=== PATIENT | female | born 1995 | race Caucasian/White ===

== ENCOUNTER 2019-04-18 17:56 | Emergency (ER) | payer OTHER ==
[~2019-04-18] VITALS: Ht 167.6 cm; Wt 77.3 kg
[2019-04-18 18:06] VITALS: Ht 167.6 cm; Wt 77.3 kg
[2019-04-18] MEDS ORDERED: LEVETIRACETAM 1000 MG (PMX) 100 ML IVPB STA (18:23)
[2019-04-18] MEDS ORDERED: OXCARBAZEPINE 300 MG TAB PO ONE (19:00)
[2019-04-18] MEDS ORDERED: KETOROLAC 30 MG INJ IV STA (19:47)
--- NOTE | 2019-04-18 21:33 | ERD ---
ER Documentation Chief Complaint Chief Complaint BIBA c/o Seizure no abraisions/lac/bruising noted, right shoulder pain HPI This is a 23-year-old female that states she has a known history of seizure disorders on Trileptal 300 mg twice daily. She states her seizures began after she was diagnosed with pots disease. The patient indicated that several months ago she moved from [place]. She currently resides in an apartment that she has to walk up 20 steps. She indicates that just prior to arrival the patient had an unwitnessed seizure. She stated she had been standing washing her hands when she fell onto a tiled floor. She denies a headache or neck pain. She complains of right shoulder pain. She indicated when she woke up she phoned 911. She believes this was only for several seconds. She did not lose urinary incontinence or bite her tongue. She states she spoke with her neurologist and they had discussed increasing her dose of Trileptal to 600 mg on a nightly basis. Patient denies any recent fever shaking or chills. She denies any neck pain. ROS All systems reviewed and are negative except as per history of present illness. Allergies Allergies: Coded Allergies: amoxicillin (Verified Allergy, Mild, 04/18/19) propranolol (Verified Allergy, Mild, 04/18/19) PMhx/Soc History of Surgery: Yes (lt knee sx x2, appendectomy) Anesthesia Reaction: No Hx Neurological Disorder: Yes (seizure disorder) Hx Respiratory Disorders: No Hx Cardiac Disorders: No Hx Psychiatric Problems: No Hx Miscellaneous Medical Probl: Yes (POTS syndrome) Hx Alcohol Use: No Hx Substance Use: No Hx Tobacco Use: No Smoking Status: Never smoker Physical Exam Vitals Vital Signs Date Temp Pulse Resp B/P (MAP) Pulse Ox O2 O2 Flow FiO2 Time Delivery Rate 04/18/19 98.1 91 22 129/79 98 18:06 (96) Physical Exam Constitutional:Well-developed. Well-nourished. HEENT:Normocephalic. Atraumatic.Pupils were equal round reactive to light. Moist mucous membranes.No tonsillar exudates. No nasal septal hematoma. No hemotympanum. Neck: No nuchal rigidity. No lymphadenopathy. No posterior cervical spine tenderness or step-offs. Respiratory: Not using accessory muscles of respiration.Lungs were clear to auscultation bilaterally. No rhonchi. No rales. No wheezing. Cardiovascular: Regular rate regular rhythm.No murmurs. No rubs were appreciated.S1, S2 normal. Distal pulses are palpable 2+ bilaterally. GI: Abdomen was soft. Nontender. Non Distended. No pulsatile abdominal masses or bruits. No rebound. No guarding. Bowel sounds were present and normal. Muscle skeletal: Full range of motion of both the upper and lower extremities bilaterally.Normal muscle tone.No assymetrical calf tenderness or swelling. Tenderness of the right humeral head however there was no abnormal lie to the right humeral head. Patient was able to abduct the right upper extremity past 90 degrees but this created a mild amount of pain. No swelling of the right upp er extremity. Handgrip equal and symmetrical bilaterally. Skin: No petechia, no purpura. No lesions on the palms or the soles of the feet. No maculopapular rash. NEURO: Patient was alert, awake, orientated x3.No facial droop. Gait observed and normal with no ataxia.Speech had regular rate and rhythm. No focal neurological deficits. Result Diagram: 04/18/19182504/18/191825 Results 24 hrs Laboratory Tests Test 04/18/19 18:26 04/18/19 19:58 White Blood Count 7.0 10^3/ul Red Blood Count 5.06 10^6/ul Hemoglobin 13.2 g/dl Hematocrit 41.2 % Mean Corpuscular Volume 81.4 fl Mean Corpuscular Hemoglobin 26.1 pg Mean Corpuscular Hemoglobin Concent 32.0 g/dl Red Cell Distribution Width 13.9 % Platelet Count 268 10^3/UL Mean Platelet Volume 10.9 fl Immature Granulocytes % 0.300 % Neutrophils % 68.7 % Lymphocytes % 22.8 % Monocytes % 7.2 % Eosinophils % 0.6 % Basophils % 0.4 % Nucleated Red Blood Cells % 0.0 /100WBC Immature Granulocytes # 0.020 10^3/ul Neutrophils # 4.8 10^3/ul Lymphocytes # 1.6 10^3/ul Monocytes # 0.5 10^3/ul Eosinophils # 0.0 10^3/ul Basophils # 0.0 10^3/ul Nucleated Red Blood Cells # 0.0 10^3/ul Prothrombin Time 12.0 Sec Prothrombin Time Ratio 0.9 INR International Normalized Ratio 0.88 Activated Partial Thromboplast Time 28.8 Sec Sodium Level 140 mmol/L Potassium Level 3.7 mmol/L Chloride Level 107 mmol/L Carbon Dioxide Level 25 mmol/L Anion Gap 8 Blood Urea Nitrogen 12 mg/dl Creatinine 0.63 mg/dl Est Glomerular Filtrat Rate mL/min > 60 mL/min Glucose Level 130 mg/dl Calcium Level 9.3 mg/dl Total Bilirubin 0.5 mg/dl Direct Bilirubin 0.00 mg/dl Indirect Bilirubin 0.5 mg/dl Aspartate Amino Transf (AST/SGOT) 25 IU/L Alanine Aminotransferase (ALT/SGPT) 11 IU/L Alkaline Phosphatase 73 IU/L Total Protein 7.9 g/dl Albumin 4.5 g/dl Globulin 3.40 g/dl Albumin/Globulin Ratio 1.32 POC Beta HCG, Qualitative NEGATIVE Current Medications Medications Dose Sig/Mohsen Start Time Status Last (Trade) Ordered Route PRN Stop Time Admin Dose Reason Admin 100 ml @ ONCE STAT 04/18/19 DC 04/18/19 Levetiracetam 400 mls/hr IVPB 18:23 04/18/19 18:44 18:37 300 mg ONCE ONCE 04/18/19 DC 04/18/19 Oxcarbazepine PO 19:00 04/18/19 19:03 19:01 (Trileptal) Ketorolac 30 mg ONCE STAT 04/18/19 DC 04/18/19 Tromethamine IV 19:47 04/18/19 20:01 (Toradol) 19:51 Procedures/MDM This is a 23-year-old female that states she has a complicated past medical history. She states she is a fall risk. She states that she has frequent seizures. The patient had no signs of head trauma. Radiographic imaging was obtained of the patient's shoulder. There is no underlying fracture or dislocation. IV access was established and Keppra was initially to be given. However the patient states she has adverse reactions to Keppra. She was given a dose of her Trileptal p.o. She was requesting analgesic medication. She was given IV Toradol as her pain appeared to be from a muscle skeletal injury. She had good range of motion the bilateral upper extremities. The patient stated that she wanted to be admitted to the hospital and placed in a SNF facility she stated she could not walk up the steps to her home. I indicated to the patient that we could provide a social work consult. She states she already has a manager social. The patient is a fall risk and does not have anybody who is able to help her attend her activities of daily living. The patient indicated that her boyfriend would be able to stay with her for only 24 hours. She will contact her manager social to help to arrange for possible SNF facility as the patient does appear to be gravely disabled. Departure Diagnosis: Primary Impression: Seizure disorder Additional Impression: Right shoulder strain Encounter type: initial encounter Qualified Codes: S46.911A - Strain of unspecified muscle, fascia and tendon at shoulder and upper arm level, right arm, initial encounter Condition: Fair Patient Instructions: Shoulder Sprain , Seizure, Recurrent [Adult] Additional Instructions: Patient requires outpatient follow up with a manager social for home health care arrangements MYCHAL BLAND MD Apr 18, 2019 21:33
[2019-04-18] MEDS ORDERED: IVAB5TAB PO (22:41)
[2019-04-18 23:08] VITALS: BP 119/77; PULSE 87; RESP 18
== END 2019-04-18 23:21 | disposition home or self-care (01) ==
LOC: E/R 17:56
DX: G40.909 Epilepsy, unspecified, not intractable, without status epilepticus (principal); S46.911A Strain of unspecified muscle, fascia and tendon at shoulder and upper arm level, right arm, initial encounter; R40.2142 Coma scale, eyes open, spontaneous, at arrival to emergency department; R40.2362 Coma scale, best motor response, obeys commands, at arrival to emergency department; R40.2252 Coma scale, best verbal response, oriented, at arrival to emergency department; W18.39XA Other fall on same level, initial encounter; Y92.9 Unspecified place or not applicable
CPT/HCPCS: 73030; 80053; 81025; 85025; 85610; 85730; 93005; 96374; 96375; J1885; J1953; Z7502; Z7610

== ENCOUNTER 2019-05-06 00:37 | Emergency (ER) | payer OTHER ==
[~2019-05-06] VITALS: Ht 167.6 cm; Wt 77.3 kg
[~2019-05-06 00:37] MED LIST: IVAB5TAB PO
[2019-05-06 00:38] VITALS: Ht 167.6 cm; Wt 77.3 kg
[2019-05-06] MEDS ORDERED: SOD CHLORIDE 0.9% 1,000 ML IV STA (01:00)
[2019-05-06] MEDS ORDERED: LORAZEPAM 2 MG INJ IV STA (01:00)
[2019-05-06] MEDS ORDERED: ONDANSETRON 4 MG INJ IV STA (01:29)
[2019-05-06] MEDS ORDERED: KETOROLAC 30 MG INJ IV STA (02:25)
[2019-05-06] MEDS ORDERED: OXCA300T41 PO (03:28)
[2019-05-06] MEDS ORDERED: ESCI10TA48 PO (03:28)
[2019-05-06] MEDS ORDERED: NORG1TAB65 PO (03:28)
[2019-05-06] MEDS ORDERED: CHOL10009 PO (03:28)
[2019-05-06] MEDS ORDERED: OXCA600T30 PO (03:28)
--- NOTE | 2019-05-06 03:54 | ERD ---
ER Documentation Chief Complaint Chief Complaint SEIZURE X1HR AGO; STATES FELL DOWN 3-4 STEPS -WITNESSED; POSTICTAL HPI This is a 23 from 70 seizure an hour ago when she was at home. Is on some steroids in the back of her head. Denies any nausea or vomiting. Denies any focal neurological complaints. Denies any visual acuity changes. ROS All systems reviewed and are negative except as per history of present illness. Medications Home Meds Active Scripts Ivabradine HCl (Corlanor) 5 Mg Tablet, 5 MG PO BID, #30 TAB Prov:JAY JAY LOPEZ MD 04/18/19 Reported Medications Oxcarbazepine* (Oxcarbazepine*) 600 Mg Tablet, 600 MG PO BID WITH MEALS, TAB 05/06/19 Cholecalciferol (Vitamin D3) 1,000 Unit Capsule, 1000 UNITS PO DAILY for 30 Days TAKE 1 CAPSULE BY MOUTH EVERY DAY 05/06/19 Oxcarbazepine* (Oxcarbazepine*) 300 Mg Tablet, 600 MG PO QAM for 30 Days, #90 05/06/19 Escitalopram Oxalate* (Escitalopram Oxalate*) 10 Mg Tablet, 10 MG PO DAILY TAKE 1 TABLET BY MOUTH EVERY DAY 05/06/19 Norgestimate-Ethinyl Estradiol (Norgestimate-Ethinyl Estradiol) 0.035-0.18 Mg Tablet, 1 TAB PO DAILY, TAB 05/06/19 Allergies Allergies: Coded Allergies: amoxicillin (Unverified Allergy, Mild, 05/06/19) propranolol (Unverified Allergy, Mild, 05/06/19) PMhx/Soc History of Surgery: Yes (lt knee sx x2, appendectomy) Anesthesia Reaction: No Hx Neurological Disorder: Yes (seizure disorder) Hx Respiratory Disorders: No Hx Cardiac Disorders: No Hx Psychiatric Problems: No Hx Miscellaneous Medical Probl: Yes (POTS syndrome) Hx Alcohol Use: Yes (social ) Hx Substance Use: Yes (CBD) Hx Tobacco Use: No Smoking Status: Never smoker Physical Exam Vitals Vital Signs Date Temp Pulse Resp B/P (MAP) Pulse Ox O2 O2 Flow FiO2 Time Delivery Rate 05/06/19 97.6 77 19 125/78 98 00:38 (94) Physical Exam Const: No acute distress Head: Atraumatic Eyes: Normal Conjunctiva ENT: Normal External Ears, Nose and Mouth. Neck: Full range of motion. No meningismus. Resp: Clear to auscultation bilaterally Cardio: Regular rate and rhythm, no murmurs Abd: Soft, non tender, non distended. Normal bowel sounds Skin: No petechiae or rashes Back: No midline or flank tenderness Ext: No cyanosis, or edema Neur: Awake and alert Psych: Normal Mood and Affect Result Diagram: 05/06/19 0119 05/06/19 0119 Results 24 hrs Laboratory Tests Test 05/06/19 01:19 05/06/19 02:51 05/06/19 02:52 White Blood Count 8.4 10^3/ul Red Blood Count 4.67 10^6/ul Hemoglobin 12.0 g/dl Hematocrit 38.7 % Mean Corpuscular Volume 82.9 fl Mean Corpuscular Hemoglobin 25.7 pg Mean Corpuscular 31.0 g/dl Hemoglobin Concent Red Cell Distribution Width 14.3 % Platelet Count 249 10^3/UL Mean Platelet Volume 10.5 fl Immature Granulocytes % 0.400 % Neutrophils % 62.9 % Lymphocytes % 28.7 % Monocytes % 7.0 % Eosinophils % 0.5 % Basophils % 0.5 % Nucleated Red Blood Cells % 0.0 /100WBC Immature Granulocytes # 0.030 10^3/ul Neutrophils # 5.3 10^3/ul Lymphocytes # 2.4 10^3/ul Monocytes # 0.6 10^3/ul Eosinophils # 0.0 10^3/ul Basophils # 0.0 10^3/ul Nucleated Red Blood Cells # 0.0 10^3/ul Prothrombin Time 11.6 Sec Prothrombin Time Ratio 0.9 INR International Normalized Ratio 0.84 Activated Partial Thromboplast 27.4 Sec Time Sodium Level 140 mmol/L Potassium Level 3.8 mmol/L Chloride Level 108 mmol/L Carbon Dioxide Level 26 mmol/L Anion Gap 6 Blood Urea Nitrogen 9 mg/dl Creatinine 0.66 mg/dl Est Glomerular Filtrat Rate mL/min > 60 mL/min Glucose Level 109 mg/dl Calcium Level 9.4 mg/dl POC Beta HCG, Qualitative NEGATIVE Bedside Glucose 93 mg/dL Current Medications Medications Dose Sig/Mohsen Start Time Status Last (Trade) Ordered Route PRN Stop Time Admin Dose Reason Admin Sodium 1,000 ml @ Q1H STAT 05/06/19 DC 05/06/19 Chloride 1,000 mls/hr IV 01:00 01:35 05/06/19 01:59 Lorazepam 1 mg ONCE STAT 05/06/19 DC 05/06/19 (Ativan) IV 01:00 01:35 05/06/19 01:01 Ondansetron 4 mg ONCE STAT 05/06/19 DC 05/06/19 HCl (Zofran IV 01:29 01:35 Inj) 05/06/19 01:30 Ketorolac 30 mg ONCE STAT 05/06/19 DC 05/06/19 Tromethamine IV 02:25 02:48 (Toradol) 05/06/19 02:26 Procedures/MDM Medical decision making: Very pleasant patient with recurrent seizure disorder. Stable for outpatient management. Advise follow-up with neurologist outpatient. Return for any further seizure-like activity Departure Diagnosis: Primary Impression: Seizure disorder Condition: Stable Patient Instructions: Seizure, Recurrent [Adult] DIMAS ALATORRE May 06, 2019 03:54
[2019-05-06 05:24] VITALS: BP 104/70; PULSE 74; RESP 18
== END 2019-05-06 05:25 | disposition home or self-care (01) ==
LOC: E/R 00:37
DX: G40.909 Epilepsy, unspecified, not intractable, without status epilepticus (principal); R40.2142 Coma scale, eyes open, spontaneous, at arrival to emergency department; R40.2252 Coma scale, best verbal response, oriented, at arrival to emergency department; R40.2362 Coma scale, best motor response, obeys commands, at arrival to emergency department
CPT/HCPCS: 36415; 70450; 71045; 80048; 81025; 82962; 85025; 85610; 85730; 96374; 96375; J1885; J2060; J2405; J7030; Z7502

== ENCOUNTER 2019-05-17 16:43 | Emergency (ER) | payer OTHER ==
[~2019-05-17] VITALS: Ht 167.6 cm; Wt 77.3 kg
[~2019-05-17 16:43] MED LIST changes: +CHOL10009 PO; +ESCI10TA48 PO; +NORG1TAB65 PO; +OXCA300T41 PO; +OXCA600T30 PO
[2019-05-17 17:08] VITALS: Ht 167.6 cm; Wt 77.3 kg
--- NOTE | 2019-05-17 17:23 | ERD ---
ER Documentation Chief Complaint Chief Complaint PT BIBA FROM HOME FOR WITNESSED SEIZURE ACTIVITY HPI 23-year-old female with a history of seizure disorder on Trileptal and POTS syndrome presents to the ED via rescue ambulance for evaluation of seizure lasting less than 5 minutes witnessed by boyfriend. Denies head injury or head ache. No incontinence. Admits to poor compiance with anticonvulsants and did not take meds this morning. Denies chest pain, palpitations, shortness of breath, abdominal pain, cough, URI symptoms, dysuria, polyuria or fevers. ROS All systems reviewed and are negative except as per history of present illness. Medications Home Meds Active Scripts Ivabradine HCl (Corlanor) 5 Mg Tablet, 5 MG PO BID, #30 TAB Prov:JAY JAY LOPEZ MD 04/18/19 Reported Medications Oxcarbazepine* (Oxcarbazepine*) 300 Mg Tablet, 300 MG PO QHS, TAB 05/17/19 Cholecalciferol (Vitamin D3) 1,000 Unit Capsule, 1000 UNITS PO DAILY for 30 Days TAKE 1 CAPSULE BY MOUTH EVERY DAY 05/06/19 Oxcarbazepine* (Oxcarbazepine*) 300 Mg Tablet, 600 MG PO QAM for 30 Days, #90 05/06/19 Escitalopram Oxalate* (Escitalopram Oxalate*) 10 Mg Tablet, 10 MG PO DAILY TAKE 1 TABLET BY MOUTH EVERY DAY 05/06/19 Norgestimate-Ethinyl Estradiol (Norgestimate-Ethinyl Estradiol) 0.035-0.18 Mg Tablet, 1 TAB PO DAILY, TAB 05/06/19 Discontinued Reported Medications Oxcarbazepine* (Oxcarbazepine*) 600 Mg Tablet, 600 MG PO BID WITH MEALS, TAB 05/06/19 Allergies Allergies: Coded Allergies: amoxicillin (Unverified Allergy, Mild, 05/17/19) propranolol (Unverified Allergy, Mild, 05/17/19) PMhx/Soc Reviewed. As per HPI. History of Surgery: Yes (lt knee sx x2, appendectomy) Anesthesia Reaction: No Hx Neurological Disorder: Yes (seizure disorder) Hx Respiratory Disorders: No Hx Cardiac Disorders: Yes (POTS SYNDROME ) Hx Psychiatric Problems: No Hx Miscellaneous Medical Probl: Yes (POTS syndrome) Hx Alcohol Use: Yes (social ) Hx Substance Use: Yes (CBD) Hx Tobacco Use: No Smoking Status: Never smoker FmHx No CAD or sudden cardiac Physical Exam Vitals Vital Signs Date Temp Pulse Resp B/P (MAP) Pulse Ox O2 O2 Flow FiO2 Time Delivery Rate 05/17/19 98.1 72 18 127/81 100 Room Air 21:00 (96) 05/17/19 76 16 120/84 100 Nasal 2.0 18:20 (96) Cannula 05/17/19 85 23 128/90 100 Nasal 2.0 17:16 (103) Cannula 05/17/19 98.7 77 17 122/66 100 17:08 (84) Physical Exam Const: Sleepy. moderate distress, anxious. Head: Atraumatic Eyes: MEME. EOMI. Normal Conjunctiva. No nystagmus. ENT: Normal External Ears, Nose and Mouth. No hemotympanum or cooper sign. No intraoral injury. Neck: Full range of motion. No midline bony tenderness or paraspinal muscle spasm. No lymphadenopathy. No goiter. No meningismus. No JVD. Resp: BS equal and clear to auscultation bilaterally Cardio: Regular rate and rhythm, no murmurs, gallops or rubs. Abd: Soft, non tender, non distended. No rebound or guarding. No masses. Normal bowel sounds Skin: No petechiae or rashes Back: No midline bony tenderness or paraspinal muscle spasm. No CVA tenderness. Ext: No cyanosis, or edema. No calf swelling or tenderness. Neur: Sleepy but easily arousable. CN's grossly intact. Motor and sensory equal bilaterally Psych: Anxious but not depressed. Result Diagram: 05/17/19 1738 05/17/19 1738 Results 24 hrs Laboratory Tests Test 05/17/19 17:38 White Blood Count 7.0 10^3/ul Red Blood Count 4.65 10^6/ul Hemoglobin 12.1 g/dl Hematocrit 37.7 % Mean Corpuscular Volume 81.1 fl Mean Corpuscular Hemoglobin 26.0 pg Mean Corpuscular Hemoglobin Concent 32.1 g/dl Red Cell Distribution Width 14.3 % Platelet Count 289 10^3/UL Mean Platelet Volume 10.7 fl Immature Granulocytes % 0.400 % Neutrophils % 61.2 % Lymphocytes % 27.9 % Monocytes % 9.2 % Eosinophils % 0.6 % Basophils % 0.7 % Nucleated Red Blood Cells % 0.0 /100WBC Immature Granulocytes # 0.030 10^3/ul Neutrophils # 4.3 10^3/ul Lymphocytes # 1.9 10^3/ul Monocytes # 0.6 10^3/ul Eosinophils # 0.0 10^3/ul Basophils # 0.1 10^3/ul Nucleated Red Blood Cells # 0.0 10^3/ul Sodium Level 143 mmol/L Potassium Level 3.8 mmol/L Chloride Level 109 mmol/L Carbon Dioxide Level 25 mmol/L Anion Gap 9 Blood Urea Nitrogen 11 mg/dl Creatinine 0.65 mg/dl Est Glomerular Filtrat Rate mL/min > 60 mL/min Glucose Level 112 mg/dl Calcium Level 9.2 mg/dl Total Bilirubin 0.2 mg/dl Direct Bilirubin 0.00 mg/dl Indirect Bilirubin 0.2 mg/dl Aspartate Amino Transf (AST/SGOT) 20 IU/L Alanine Aminotransferase (ALT/SGPT) 15 IU/L Alkaline Phosphatase 61 IU/L Total Protein 7.4 g/dl Albumin 4.0 g/dl Globulin 3.40 g/dl Albumin/Globulin Ratio 1.17 Serum HCG, Qualitative NEGATIVE Current Medications Medications Dose Sig/Mohsen Start Time Status Last (Trade) Ordered Route PRN Stop Time Admin Dose Reason Admin 600 mg ONCE ONCE 05/17/19 DC 05/17/19 Oxcarbazepine PO 17:30 17:39 05/17/19 17:31 (Trileptal) Ketorolac 15 mg ONCE STAT 05/17/19 DC 05/17/19 Tromethamine IV 17:27 18:12 (Toradol) 05/17/19 17:28 Sodium 500 ml @ Q1H STAT 05/17/19 DC 05/17/19 Chloride 500 mls/hr IV 19:36 19:39 05/17/19 20:35 Ivabradine 5 mg ONCE PO 05/17/19 DC 05/17/19 (Corlanor) 21:30 21:20 05/17/19 21:30 Procedures/MDM DOCUMENTS REVIEWED: ED nurse, two prior ED visits for seizures this month Observation Note: Time: 3 hours Family Hx: No Hypertension Evaluation: Multiple exams showed improving symptoms and no evidence of recurrent seizures or status epilepticus. MEDICAL DECISION MAKIN-year-old female with a history of seizure disorder on Trileptal and POTS syndrome presents to the ED via rescue ambulance for evaluation of seizure. No anemia, leukocytosis, electrolyte abnormalities, hypoglycemia or renal insufficiency. Not . CT brain considered but not indicated in this patient with long standing seizure disorder without signs of head trauma or increased ICP. No signs of an occult infection. Patient presents with seizure likely due to non compliance with anticonvulsants. Stable for discharge with precautionary instructions and outpatient follow-up as counseled. Counseled patient and family regarding diagnostic workup, diagnosis and need for followup. Understands to return to ED if symptoms recur, worsen or any other concerns. Departure Diagnosis: Primary Impression: Seizure disorder Additional Impressions: POTS (postural orthostatic tachycardia syndrome) Noncompliance with medication regimen Condition: Stable YESSENIA RANGEL MD May 17, 2019 17:23
[2019-05-17] MEDS ORDERED: KETOROLAC 15 MG INJ IV STA (17:27)
[2019-05-17] MEDS ORDERED: OXCARBAZEPINE 300 MG TAB PO ONE (17:30)
[2019-05-17] MEDS ORDERED: OXCA300T41 PO (17:43)
[2019-05-17] MEDS ORDERED: SOD CHLORIDE 0.9% 500 ML IV STA (19:36)
[2019-05-17 21:00] VITALS: BP 127/81; PULSE 72; RESP 18
[2019-05-17] MEDS ORDERED: IVABRADINE HCL 5 MG TABLET PO SCH (21:30)
== END 2019-05-17 21:22 | disposition home or self-care (01) ==
LOC: E/R 16:43
DX: G40.909 Epilepsy, unspecified, not intractable, without status epilepticus (principal); R40.2142 Coma scale, eyes open, spontaneous, at arrival to emergency department; R40.2362 Coma scale, best motor response, obeys commands, at arrival to emergency department; R40.2252 Coma scale, best verbal response, oriented, at arrival to emergency department
CPT/HCPCS: 80053; 84703; 85025; 96374; J1885; J7040; Z7502; Z7610